=== PATIENT | female | born 1970 | race Caucasian/White ===

== ENCOUNTER 2020-07-28 14:16 | Observation (INO) ==
[2020-07-28 14:54] LABS: Basophils % 0.2 % (0.0-0.8); Eosinophils % 0.3 % (0.00-10.9); Hematocrit 41.1 VOL% (35.7-47.0); Hemoglobin 14.5 GM/DL (12.0-16.0); Immature Granulocytes % 0.3 %; Immature Granulocytes Absolute 0.03 #; Lymphocytes # 1.3 10*3/uL (1.4-4.0); Lymphocytes % 12.5 % (21.3-54.2); Mean Corpuscular HGB Conc 35.3 GM/DL (32-36); Mean Corpuscular Volume 86.3 FL (87-102); Mean Platelet Volume 8.8 FL (9.6-12.0); Monocytes % 4.6 % (1.7-12.7); Neutrophils % 82.1 % (38.7-73.9); Platelet Count 209 T/CUMM (130-400); Red Blood Count 4.76 MC/CUMM (3.8-5.5); Red Cell Distribution Width 14.8 % (9.3-17.3); White Blood Count 10.2 T/CUMM (4-12)
[2020-07-28 15:04] LABS: INR 0.9; PT Patient Result 10.7 SECS (10.5-12.0); Partial Thromboplastin Time 27.4 SECS (23.9-33.8)
[2020-07-28 15:16] LABS: Albumin 3.9 G/DL (3.4-5.0); Bilirubin,Total 1.3 MG/DL (0.2-1.0); Calcium 8.6 MG/DL (8.5-10.1); Osmolality,Calculated 280.5 MOS/KG (273-304); Total Protein 7.3 G/DL (6.4-8.2)
[2020-07-28] MEDS ORDERED: ASPIRIN CHEW 81 MG TABLET PO STA (15:47)
[2020-07-28] MEDS ORDERED: ALUM/MAG/SIMETH/LIDO VISC 1:1 30 ML BOTTLE PO STA (15:47)
[2020-07-28] MEDS ORDERED: ENOXAPARIN 120 MG/0.8 ML SYRINGE SUBCUT STA (15:47)
[2020-07-28] MEDS ORDERED: GLUCAGON 1 MG VIAL IM PRN (16:36)
[2020-07-28] MEDS ORDERED: DEXTROSE 50% 25 GM/50 ML VIAL IV PRN ×2 (16:36→16:37)
[2020-07-28] MEDS ORDERED: POTASSIUM CHLORIDE 20 MEQ TABLET PO PRN (16:37)
[2020-07-28] MEDS ORDERED: MORPHINE 4 MG/1 ML VIAL IV PRN (16:37)
[2020-07-28] MEDS ORDERED: ONDANSETRON 4 MG/2 ML VIAL IV PRN (16:37)
[2020-07-28] MEDS ORDERED: NITROGLYCERIN SL 0.4 MG TABLET SL PRN (16:37)
[2020-07-28] MEDS ORDERED: MAGNESIUM SULF RIDER 2 GM/50 ML PREMIX IV PRN (16:37)
[2020-07-28] MEDS ORDERED: hydrALAZINE 20 MG/1 ML VIAL IV PRN (16:37)
[2020-07-28] MEDS ORDERED: ACETAMINOPHEN 325 MG TABLET PO PRN (16:37)
[2020-07-28] MEDS ORDERED: METHOCARBAMOL 500 MG TABLET PO SCH (21:00)
[2020-07-28] MEDS: INSULIN LISPRO 100 UNIT/ML SUBCUT SCH (21:41)
[2020-07-28] MEDS: GABAPENTIN 400 MG CAPSULE PO SCH (21:45)
[2020-07-29 06:53] LABS: Basophils % 0.4 % (0.0-0.8); Eosinophils # 0.1 10*3/uL (0.0-0.87); Eosinophils % 0.8 % (0.00-10.9); Hematocrit 39.4 VOL% (35.7-47.0); Hemoglobin 13.3 GM/DL (12.0-16.0); Immature Granulocytes % 0.3 %; Immature Granulocytes Absolute 0.02 #; Lymphocytes # 2.2 10*3/uL (1.4-4.0); Lymphocytes % 31.7 % (21.3-54.2); Mean Corpuscular HGB Conc 33.8 GM/DL (32-36); Mean Corpuscular Volume 88.5 FL (87-102); Mean Platelet Volume 8.8 FL (9.6-12.0); Monocytes % 7.8 % (1.7-12.7); Platelet Count 186 T/CUMM (130-400); Red Blood Count 4.45 MC/CUMM (3.8-5.5); Red Cell Distribution Width 15.1 % (9.3-17.3); White Blood Count 7.1 T/CUMM (4-12)
[2020-07-29] MEDS: INSULIN LISPRO 100 UNIT/ML SUBCUT SCH ×2 (07:24→12:08)
[2020-07-29 07:28] LABS: Risk Ratio 5.45; VLDL CHOLESTEROL 107.8 MG/DL
[2020-07-29 08:16] LABS: Calcium 8.4 MG/DL (8.5-10.1); Osmolality,Calculated 275.7 MOS/KG (273-304)
[2020-07-29] MEDS ORDERED: NON-FORMULARY MEDICATION (Alpha Lipoic Acid 200 mg Capsule) PO SCH (09:00)
[2020-07-29] MEDS ORDERED: PANTOPRAZOLE 40 MG TABLET PO SCH ×2 (09:00→21:00)
[2020-07-29] MEDS: GABAPENTIN 400 MG CAPSULE PO SCH ×2 (09:59→15:03)
[2020-07-29] MEDS: CHOLECALCIFEROL 400 UNIT TABLET PO SCH ×2 (09:59→12:24)
[2020-07-29] MEDS: THIAMINE 100 MG TABLET PO SCH ×2 (09:59→12:23)
[2020-07-29] MEDS: ASPIRIN CHEW 81 MG TABLET PO SCH ×2 (09:59→12:23)
[2020-07-29] MEDS: LOSARTAN 50 MG TABLET PO SCH ×2 (09:59→12:24)
[2020-07-29] MEDS: MULTIVITAMIN (BEROCCA) TABLET PO SCH ×2 (09:59→12:24)
[2020-07-29] MEDS ORDERED: FUROSEMIDE 20 MG TABLET PO PRN (11:49)
[2020-07-29 12:12] VITALS: BP 138/86
[2020-07-29] MEDS ORDERED: ENOXAPARIN 40 MG/0.4 ML SYRINGE SUBCUT SCH (16:00)
[2020-07-29] MEDS ORDERED: ESCITALOPRAM 10 MG TABLET PO SCH (21:00)
[2020-07-29] MEDS ORDERED: ATORVASTATIN 40 MG TABLET PO SCH (21:00)
[2020-07-30] MEDS ORDERED: FENOFIBRATE 145 MG TABLET PO SCH (09:00)
== END 2020-07-29 15:25 | disposition home or self-care (01) ==
LOC: N.EDINP 14:16 → N.ED 14:16 → N.EDINP 07-29 02:02 → N.TELES 07-29 03:48
PROVIDERS: ADMIT Internal Medicine; ATTEND Internal Medicine